=== PATIENT | female | born 1990 | race Two or more races ===

== ENCOUNTER 2016-09-14 15:40 | Emergency (ER) | payer OTHER ==
[~2016-09-14 15:40] MED LIST: PRENATAL VITAMINS; [UNRECOGNIZED DRUG - REMARK]
== END 2016-09-14 16:03 | disposition home or self-care (01) ==
LOC: SED 15:40
DX: H65.02 Acute serous otitis media, left ear (principal); Z88.0 Allergy status to penicillin
CPT/HCPCS: 99282